=== PATIENT | male | born 1950 | race Caucasian/White ===

== ENCOUNTER 2017-09-15 13:49 | Inpatient (IN) | payer MEDICARE, BC ==
[~2017-09-15] VITALS: Ht 167.6 cm; Wt 99.8 kg
[~2017-09-15 13:49] MED LIST: ALPR-624; BUPR100T6 PO; BUSP10TA11 PO; EFF37.5XRC PO; HYDR-565 PO; PALI9TAB PO; ZOLP1.75; ZOLP5TAB8 PO
[2017-09-15] MEDS ORDERED: zolpidem 5mg tablet PO PRN (14:50)
[2017-09-15] MEDS ORDERED: ALPR0.5T6 PO (14:52)
[2017-09-15] MEDS: HYDROcodone/acetaminophen 10/325mg tab PO PRN (15:52)
[2017-09-15 19:44] VITALS: BP 135/75
[2017-09-15] MEDS: busPIRone 15mg tablet PO SCH (21:24)
[2017-09-15] MEDS: Melatonin 3mg tablet PO SCH (21:24)
[2017-09-15] MEDS: vitamin D (cholecalciferol) 1,000 unit tablet PO SCH (21:24)
[2017-09-16] MEDS: HYDROcodone/acetaminophen 10/325mg tab PO PRN ×2 (07:08→19:17)
[2017-09-16 07:21] VITALS: BP 143/75
[2017-09-16 07:40] LABS: CHOL/HDL RATIO 2.9 (0.00-4.99); CHOLESTEROL 132 MG/DL (0-200); HDL CHOLESTEROL 46 MG/DL (35-60); LDL CHOLESTEROL 74 MG/DL (50-100); TRIGLYCERIDES 82 MG/DL (20-135)
[2017-09-16 07:42] LABS: HEMOGLOBIN A1C 5.5 % (4.5-6.2)
[2017-09-16] MEDS: vitamin D (cholecalciferol) 1,000 unit tablet PO SCH ×2 (08:32→20:37)
[2017-09-16] MEDS: venlafaxine XR 37.5mg cap (Q24H) PO SCH (08:32)
[2017-09-16] MEDS: busPIRone 15mg tablet PO SCH ×2 (08:32→20:37)
[2017-09-16] MEDS: PALIPERIDONE 3 MG TAB.ER.24 PO SCH (08:33)
[2017-09-16] MEDS: ALPRAZolam 0.5mg tablet PO SCH (08:33)
[2017-09-16] MEDS: buPROPion SR 100mg tab PO SCH (08:33)
[2017-09-16 19:45] VITALS: BP 131/71
[2017-09-16] MEDS: traZODone 50mg tablet PO SCH (20:38)
[2017-09-16] MEDS: Melatonin 3mg tablet PO SCH (20:38)
[2017-09-16] MEDS ORDERED: gabapentin 300mg capsule PO SCH (21:00)
[2017-09-17] MEDS: traZODone 50mg tablet PO SCH ×2 (03:33→21:05)
[2017-09-17 07:17] VITALS: BP 132/72
[2017-09-17] MEDS: venlafaxine XR 37.5mg cap (Q24H) PO SCH (07:50)
[2017-09-17] MEDS: busPIRone 15mg tablet PO SCH ×2 (07:50→20:52)
[2017-09-17] MEDS: ALPRAZolam 0.5mg tablet PO SCH (07:51)
[2017-09-17] MEDS: vitamin D (cholecalciferol) 1,000 unit tablet PO SCH ×2 (07:51→20:50)
[2017-09-17] MEDS: buPROPion SR 100mg tab PO SCH (07:51)
[2017-09-17] MEDS: PALIPERIDONE 3 MG TAB.ER.24 PO SCH (07:51)
[2017-09-17] MEDS: HYDROcodone/acetaminophen 10/325mg tab PO PRN ×2 (07:52→20:52)
[2017-09-17 19:25] VITALS: BP 128/71
[2017-09-17] MEDS: Melatonin 3mg tablet PO SCH (20:49)
[2017-09-17] MEDS ORDERED: gabapentin 400mg capsule PO SCH (21:00)
[2017-09-18 07:18] VITALS: BP 119/70
[2017-09-18] MEDS: buPROPion SR 100mg tab PO SCH (08:05)
[2017-09-18] MEDS: PALIPERIDONE 3 MG TAB.ER.24 PO SCH (08:05)
[2017-09-18] MEDS: busPIRone 15mg tablet PO SCH ×2 (08:05→20:32)
[2017-09-18] MEDS: gabapentin 100mg capsule PO SCH (08:05)
[2017-09-18] MEDS: ALPRAZolam 0.5mg tablet PO SCH (08:05)
[2017-09-18] MEDS: vitamin D (cholecalciferol) 1,000 unit tablet PO SCH ×2 (08:05→20:31)
[2017-09-18] MEDS: venlafaxine XR 37.5mg cap (Q24H) PO SCH (08:05)
[2017-09-18] MEDS: HYDROcodone/acetaminophen 10/325mg tab PO PRN ×2 (08:56→20:32)
[2017-09-18 19:00] VITALS: BP 117/70
[2017-09-18] MEDS: Melatonin 3mg tablet PO SCH (20:33)
[2017-09-18] MEDS: traZODone 50mg tablet PO SCH (20:35)
[2017-09-18] MEDS ORDERED: gabapentin 300mg capsule PO SCH (21:00)
[2017-09-19 08:00] VITALS: BP 133/79
[2017-09-19] MEDS: ALPRAZolam 0.5mg tablet PO SCH (08:26)
[2017-09-19] MEDS: PALIPERIDONE 3 MG TAB.ER.24 PO SCH (08:26)
[2017-09-19] MEDS: buPROPion SR 100mg tab PO SCH (08:26)
[2017-09-19] MEDS: gabapentin 100mg capsule PO SCH ×2 (08:26→12:59)
[2017-09-19] MEDS: vitamin D (cholecalciferol) 1,000 unit tablet PO SCH ×2 (08:26→20:30)
[2017-09-19] MEDS: venlafaxine XR 37.5mg cap (Q24H) PO SCH (08:26)
[2017-09-19] MEDS: busPIRone 15mg tablet PO SCH ×2 (08:26→20:30)
[2017-09-19] MEDS: HYDROcodone/acetaminophen 10/325mg tab PO PRN (08:33)
[2017-09-19 12:41] LABS: CLARITY,URINE CLEAR (Clear); GLUCOSE, URINE NEGATIVE (Neg); KETONES,URINE NEGATIVE (Neg); LEUKOCYTE ESTERASE ,URINE NEGATIVE (Neg); NITRITES, URINE NEGATIVE (Neg); OCCULT BLOOD,URINE TRACE-INTACT (Neg); PH,URINE 5.5 (4.8-8.0); PROTEIN,URINE NEGATIVE (Neg); UROBILINOGEN,URINE 0.2 E.U/dL (0.2-1.0)
[2017-09-19 12:47] LABS: UA COLLECTION TYPE CLN CATCH MIDSTREAM
[2017-09-19 12:48] LABS: BACTERIA,URINE NONE SEEN /HPF (Neg); COLOR,URINE STRAW (Yellow); MUCUS STRANDS NONE SEEN /LPF (Neg); RBC,URINE 0-2 /HPF (0-2); SQUAMOUS EPITHELIAL CELL,UR NONE SEEN /LPF (FEW); WBC,URINE 0-4 /HPF (0-4)
[2017-09-19] MEDS: acetaminophen 325mg tablet PO PRN (12:59)
[2017-09-19 19:28] VITALS: BP 129/77
[2017-09-19] MEDS: Melatonin 3mg tablet PO SCH (20:30)
[2017-09-19] MEDS: gabapentin 400mg capsule PO SCH (20:31)
[2017-09-20] MEDS: ALPRAZolam 0.5mg tablet PO SCH (07:34)
[2017-09-20] MEDS: buPROPion SR 100mg tab PO SCH (07:34)
[2017-09-20] MEDS: vitamin D (cholecalciferol) 1,000 unit tablet PO SCH ×2 (07:34→20:56)
[2017-09-20] MEDS: venlafaxine XR 75mg capsule (Q24H) PO SCH (07:34)
[2017-09-20] MEDS: PALIPERIDONE 3 MG TAB.ER.24 PO SCH (07:35)
[2017-09-20] MEDS: gabapentin 100mg capsule PO SCH ×2 (07:35→12:46)
[2017-09-20] MEDS: busPIRone 15mg tablet PO SCH ×2 (07:35→20:52)
[2017-09-20] MEDS: HYDROcodone/acetaminophen 10/325mg tab PO PRN ×2 (07:39→20:53)
[2017-09-20 08:00] VITALS: BP 152/88
[2017-09-20] MEDS: acetaminophen 325mg tablet PO PRN (17:39)
[2017-09-20 19:53] VITALS: BP 142/72
[2017-09-20] MEDS: Melatonin 3mg tablet PO SCH (20:52)
[2017-09-20] MEDS: gabapentin 400mg capsule PO SCH (20:53)
[2017-09-21] MEDS: vitamin D (cholecalciferol) 1,000 unit tablet PO SCH ×2 (07:39→20:13)
[2017-09-21] MEDS: venlafaxine XR 75mg capsule (Q24H) PO SCH (07:39)
[2017-09-21] MEDS: ALPRAZolam 0.5mg tablet PO SCH (07:39)
[2017-09-21] MEDS: PALIPERIDONE 3 MG TAB.ER.24 PO SCH (07:39)
[2017-09-21] MEDS: buPROPion SR 100mg tab PO SCH (07:39)
[2017-09-21] MEDS: gabapentin 100mg capsule PO SCH ×2 (07:39→12:44)
[2017-09-21] MEDS: busPIRone 15mg tablet PO SCH ×2 (07:39→20:13)
[2017-09-21 08:00] VITALS: BP 143/89
[2017-09-21] MEDS: HYDROcodone/acetaminophen 10/325mg tab PO PRN (10:42)
[2017-09-21] MEDS: acetaminophen 325mg tablet PO PRN (18:44)
[2017-09-21] MEDS: Melatonin 3mg tablet PO SCH (20:13)
[2017-09-21] MEDS: gabapentin 400mg capsule PO SCH (20:13)
[2017-09-21 20:24] VITALS: BP 139/72
[2017-09-22] MEDS: HYDROcodone/acetaminophen 10/325mg tab PO PRN ×3 (00:40→23:53)
[2017-09-22] MEDS: acetaminophen 325mg tablet PO PRN (07:20)
[2017-09-22] MEDS: busPIRone 15mg tablet PO SCH ×2 (07:21→20:20)
[2017-09-22] MEDS: vitamin D (cholecalciferol) 1,000 unit tablet PO SCH ×2 (07:22→20:21)
[2017-09-22] MEDS: venlafaxine XR 75mg capsule (Q24H) PO SCH (07:23)
[2017-09-22] MEDS: ALPRAZolam 0.5mg tablet PO SCH (07:24)
[2017-09-22] MEDS: buPROPion SR 100mg tab PO SCH (07:24)
[2017-09-22] MEDS: gabapentin 300mg capsule PO SCH ×2 (07:25→12:23)
[2017-09-22] MEDS: PALIPERIDONE 3 MG TAB.ER.24 PO SCH (07:26)
[2017-09-22 07:38] VITALS: BP 145/80
[2017-09-22 18:55] VITALS: BP 144/76
[2017-09-22 20:00] VITALS: BP 144/76
[2017-09-22] MEDS: Melatonin 3mg tablet PO SCH (20:22)
[2017-09-22] MEDS: gabapentin 400mg capsule PO SCH (20:23)
[2017-09-23 07:11] VITALS: BP 142/85
[2017-09-23] MEDS: venlafaxine XR 75mg capsule (Q24H) PO SCH (07:17)
[2017-09-23] MEDS: busPIRone 15mg tablet PO SCH ×2 (07:17→20:59)
[2017-09-23] MEDS: gabapentin 400mg capsule PO SCH ×3 (07:17→20:59)
[2017-09-23] MEDS: vitamin D (cholecalciferol) 1,000 unit tablet PO SCH ×2 (07:18→20:59)
[2017-09-23] MEDS: ALPRAZolam 0.5mg tablet PO SCH (07:18)
[2017-09-23] MEDS: PALIPERIDONE 3 MG TAB.ER.24 PO SCH (07:18)
[2017-09-23] MEDS: acetaminophen 325mg tablet PO PRN ×2 (08:29→21:00)
[2017-09-23 11:50] LABS: BASOPHILS % (AUTO) 0.6 % (0-1); EOSINOPHILS # (AUTO) 0.4 X10'3 (0-0.9); EOSINOPHILS % (AUTO) 5.3 % (0-6); HEMATOCRIT 39.7 % (42.0-52.0); HEMOGLOBIN 13.8 g/dl (14.0-17.9); LYMPHOCYTES % (AUTO) 26.3 % (21-51); MEAN CORPUSCULAR HEMOGLOBIN 32.5 PG (27.0-31.0); MEAN CORPUSCULAR HGB CONC 34.8 % (33.0-36.5); MEAN CORPUSCULAR VOLUME 93.2 FL (78-98); MEAN PLATELET VOLUME 8.4 FL (7.4-10.4); MONOCYTES # (AUTO) 0.7 X10'3 (0-0.9); MONOCYTES % (AUTO) 9.2 % (2-12); NEUTROPHILS # (AUTO) 4.4 X10'3 (1.8-7.7); NEUTROPHILS % (AUTO) 58.6 % (42-75); PLATELET COUNT 197 X10'3 (140-440); RED BLOOD COUNT 4.25 X10'6 (4.70-6.10); RED CELL DISTRIBUTION WIDTH 13.1 % (11.5-14.5); WHITE BLOOD COUNT 7.6 X10'3 (4.5-11.0)
[2017-09-23 11:54] LABS: ALBUMIN 3.3 G/DL (3.4-5.0); ANION GAP 9 (8-16); BLOOD UREA NITROGEN 17 MG/DL (7-18); BUN/CREATININE RATIO 18.9 (5.4-32.0); CALCIUM 8.5 MG/DL (8.5-10.1); CHLORIDE 102 MMOL/L (99-107); GLUCOSE 95 MG/DL (70-104); SODIUM 139 MMOL/L (135-145); TOTAL CARBON DIOXIDE 28.4 MMOL/L (24-32); eGFR 85 ML/MIN
[2017-09-23] MEDS: traMADol 50MG tablet PO PRN (16:10)
[2017-09-23 19:08] VITALS: BP 140/89
[2017-09-23] MEDS: Melatonin 3mg tablet PO SCH (20:59)
[2017-09-24] MEDS: traMADol 50MG tablet PO PRN ×2 (05:34→14:01)
[2017-09-24] MEDS: ALPRAZolam 0.5mg tablet PO SCH (07:31)
[2017-09-24] MEDS: gabapentin 400mg capsule PO SCH ×3 (07:31→20:40)
[2017-09-24] MEDS: busPIRone 15mg tablet PO SCH ×2 (07:31→20:39)
[2017-09-24] MEDS: vitamin D (cholecalciferol) 1,000 unit tablet PO SCH ×2 (07:31→20:40)
[2017-09-24] MEDS: venlafaxine XR 75mg capsule (Q24H) PO SCH (07:31)
[2017-09-24] MEDS: PALIPERIDONE 3 MG TAB.ER.24 PO SCH (07:31)
[2017-09-24] MEDS: amLODIPine 5mg tablet PO SCH (07:32)
[2017-09-24 08:09] VITALS: BP 127/74
[2017-09-24 19:00] VITALS: BP 124/72
[2017-09-24] MEDS: Melatonin 3mg tablet PO SCH (20:40)
[2017-09-25] MEDS: traMADol 50MG tablet PO PRN ×3 (03:29→18:58)
[2017-09-25] MEDS: acetaminophen 325mg tablet PO PRN ×3 (04:26→18:57)
[2017-09-25 07:43] VITALS: BP 124/73
[2017-09-25] MEDS: vitamin D (cholecalciferol) 1,000 unit tablet PO SCH ×2 (08:11→20:44)
[2017-09-25] MEDS: venlafaxine XR 75mg capsule (Q24H) PO SCH (08:14)
[2017-09-25] MEDS: amLODIPine 5mg tablet PO SCH (08:14)
[2017-09-25] MEDS: gabapentin 400mg capsule PO SCH ×3 (08:14→20:44)
[2017-09-25] MEDS: ALPRAZolam 0.5mg tablet PO SCH (08:15)
[2017-09-25] MEDS: busPIRone 15mg tablet PO SCH ×2 (08:15→20:44)
[2017-09-25] MEDS: PALIPERIDONE 3 MG TAB.ER.24 PO SCH (08:15)
[2017-09-25 20:00] VITALS: BP 120/66
[2017-09-25] MEDS: Melatonin 3mg tablet PO SCH (20:44)
[2017-09-26] MEDS: traMADol 50MG tablet PO PRN (03:55)
[2017-09-26] MEDS: acetaminophen 325mg tablet PO PRN (03:58)
[2017-09-26 07:31] VITALS: BP 123/74
[2017-09-26] MEDS: vitamin D (cholecalciferol) 1,000 unit tablet PO SCH (08:05)
[2017-09-26] MEDS: venlafaxine XR 75mg capsule (Q24H) PO SCH (08:06)
[2017-09-26] MEDS: ALPRAZolam 0.5mg tablet PO SCH (08:06)
[2017-09-26] MEDS: gabapentin 400mg capsule PO SCH ×2 (08:07→11:30)
[2017-09-26] MEDS: amLODIPine 5mg tablet PO SCH (08:07)
[2017-09-26] MEDS: PALIPERIDONE 3 MG TAB.ER.24 PO SCH (08:08)
[2017-09-26] MEDS: busPIRone 15mg tablet PO SCH (08:09)
[2017-09-26] MEDS ORDERED: AMLO5TAB16 PO (08:27)
[2017-09-26] MEDS ORDERED: TRAM50TA2 PO (08:27)
[2017-09-26] MEDS ORDERED: BUSP30TA2 PO (08:27)
[2017-09-26] MEDS ORDERED: VENL150T3 PO (08:27)
[2017-09-26] MEDS ORDERED: ALPR0.5T9 PO (08:27)
[2017-09-26] MEDS ORDERED: PALI9TAB4 PO (08:27)
[2017-09-26] MEDS ORDERED: GABA-534 PO ×2 (08:27)
== END 2017-09-26 11:35 | disposition home or self-care (01) | DRG 885 ==
LOC: EEVIPCON 13:49 → ADULT MH 13:49
PROVIDERS: ADMIT Psychiatry & Neurology Psychiatry; ATTEND Psychiatry & Neurology Psychiatry
DX: F31.81 Bipolar II disorder (principal); R45.851 Suicidal ideations; G62.9 Polyneuropathy, unspecified; F41.9 Anxiety disorder, unspecified; E55.9 Vitamin D deficiency, unspecified; I10 Essential (primary) hypertension; J06.9 Acute upper respiratory infection, unspecified; G89.29 Other chronic pain; M54.9 Dorsalgia, unspecified; G47.9 Sleep disorder, unspecified; Z79.899 Other long term (current) drug therapy; Z81.1 Family history of alcohol abuse and dependence
CPT/HCPCS: 36415; 80048; 80061; 81001; 83036; 85025; 87070; 87502; 87503